=== PATIENT | female | born 1980 | race Caucasian/White ===

== ENCOUNTER 2020-04-14 04:25 | Emergency (ER) | payer OTHER ==
[~2020-04-14 04:25] MED LIST: IBUPROFEN600 MG PO; NORCO 5-325 TA1 EACH PO; PREDNISONE 50 M50 MG PO; ZYRTEC10 MG PO
[2020-04-14] MEDS ORDERED: PERCOCET 5/325 T1 EA PO (05:20)
== END 2020-04-14 05:36 | disposition home or self-care (01) ==
LOC: ER1 04:25
DX: S62.307A Unspecified fracture of fifth metacarpal bone, left hand, initial encounter for closed fracture (principal); W22.8XXA Striking against or struck by other objects, initial encounter
CPT/HCPCS: 29125; 73130; 99283